=== PATIENT | female | born 1975 | race Caucasian/White ===

== ENCOUNTER 2024-10-06 18:07 | Emergency (ER) | payer BC ==
[2024-10-06 18:21] VITALS: TEMP 98.8
[2024-10-06 19:14] LABS: Absolute Neutrophil Ct (ANC) 5.63 x10^3/uL (1.56-6.13); BASOPHIL % 0.7 % (0.1-1.2); Basophil (Absolute #) 0.06 x10^3/uL (0.01-0.08); Eosinophil % 1.3 % (0.7-5.8); Eosinophil (Absolute #) 0.12 x10^3/uL (0.04-0.36); Hemoglobin 11.8 g/dL (11.2-15.7); IMMATURE GRAN # 0.03 x10^3u/L (0.001-0.031); IMMATURE GRAN % 0.3 % (0.001-0.429); Lymphocyte (Absolute #) 2.45 x10^3/uL (1.18-3.74); Lymphocytes % 26.9 % (19.3-51.7); Mean Cell Volume 90.2 fL (79.4-94.8); Mean Corpuscular Hemoglobin 28.8 pg (25.6-32.2); Mean Corpuscular Hgb Concent. 31.9 g/dL (32.2-35.5); Mean Platelet Volume 10.2 fL (9.4-12.3); Monocyte (Absolute #) 0.82 x10^3/uL (0.24-0.86); Neutrophil % 61.8 % (34.0-71.1); Platelet Count 394 x10^3/uL (182-369); Red Cell Distribution Width 15.8 % (11.7-14.4); White Blood Count 9.1 x10^3/uL (3.98-10.04)
[2024-10-06 19:33] LABS: ALBUMIN 4.7 g/dL (3.5-5.0); ANION GAP 14.8 MEQ/L (5-15); BILIRUBIN,TOTAL 0.5 mg/dL (0.2-1.3); Calcium 9.8 mg/dL (8.4-10.2); Creatinine 1 0.81 mg/dL (0.52-1.04); Direct Bilirubin 0.3 mg/dL (0.0-0.4); EST GLOMERULAR FILTRATION RATE 88.9 ML/MIN; Potassium 4.8 mmol/L (3.5-5.1); Total Protein 7.8 g/dL (6.3-8.2)
[2024-10-06 20:30] LABS: FREE TRIODOTHYRONINE 3.34 pg/mL (2.77-5.27); NT PRO BNPII 48.6 pg/mL (<300); TSH, 3RD Generation 0.354 mIU/L (0.470-4.680)
--- NOTE | 2024-10-06 20:47 | ERPHSYRPT ---
- History of Present Illness Time Seen by Provider: 10/06/24 18:22 Historian: patient Exam Limitations: no limitations Patient Subjective Stated Complaint: C/O intermittent chest pain for a few months. States pain doesn't move or radiate anywhere but is usually accompanied by left arm tingling. Denies N/V. 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 Triage Nursing Assessment: Patient ambulated back to ER. She is alert and oriented. No SOB. No cough. Skin tone normal. KELLEY WNL. No edema. Physician History: 49-year-old female with history of anxiety/depression/GERD presented in the ER from primary care office with complaint of off and on chest pain with some palpitations going on for the last 6 months. Patient reports she mentioned to her primary care and is sent in here for further evaluation. Patient reports it last for few seconds to a minute and improves on its own without any significant aggravating or relieving factors. No difficulty breathing associated with it. No history of coronary artery disease, DVT/PE. Patient reports some sensation of the left arm off and on. Denies any chest pain currently. Aspirin Treatment Today: no aspirin today Allergies/Adverse Reactions: clindamycin Allergy (Unknown, Verified 10/06/24 18:10) hydrocodone Allergy (Unknown, Verified 10/06/24 18:10) latex Allergy (Unknown, Verified 10/06/24 18:10) Penicillins Allergy (Unknown, Verified 10/06/24 18:10) Sulfa (Sulfonamide Antibiotics) Allergy (Unknown, Verified 10/06/24 18:10) aloe Adverse Reaction (Intermediate, Verified 10/06/24 18:10) Home Medications: Albuterol Sulfate [Albuterol Sulfate Hfa] 8.5 gm IH UD PRN 04/15/24 [History] Levothyroxine Sodium 50 Mcg [Synthroid 50 Mcg] 50 mcg PO DAILY 04/15/24 [History] Spironolactone 50 mg PO DAILY 04/15/24 [History] buPROPion HCL [Wellbutrin Xl] 150 mg PO DAILY 04/15/24 [History] ARIPiprazole [Aripiprazole] 2 mg PO DAILY 10/06/24 [History] Pantoprazole Sodium [Protonix] 40 mg PO BID 10/06/24 [History] Hx Tetanus, Diphtheria Vaccination/Date Given: Yes Immunizations Up to Date: Yes Travel Risk - International Travel Have you traveled outside of the country in past 3 weeks: No - Emerging Infectious Disease Are you exhibiting symptoms associated with any current EIDs: No - Review of Systems Constitutional: No Symptoms Eyes: No Symptoms Ears, Nose, & Throat: No Symptoms Respiratory: No Symptoms Cardiac: Chest Pain, Palpitations Abdominal/Gastrointestinal: No Symptoms Genitourinary Symptoms: No Symptoms Musculoskeletal: No Symptoms Neurological: No Symptoms Psychological: Anxiety, Depression Hematologic/Lymphatic: No Symptoms Immunological/Allergic: No Symptoms - Past Medical History Pertinent Past Medical History: Yes Neurological History: No Pertinent History ENT History: No Pertinent History Cardiac History: No Pertinent History Respiratory History: Asthma Endocrine Medical History: Hypothyroidism Musculoskeletal History: No Pertinent History GI Medical History: No Pertinent History History: No Pertinent History Psycho-Social History: Anxiety, Depression Female Reproductive Disorders: Pelvic Inflammatory Disease - Past Surgical History Past Surgical History: Yes Neuro Surgical History: No Pertinent History Cardiac: No Pertinent History Respiratory: No Pertinent History Gastrointestinal: No Pertinent History Genitourinary: No Pertinent History Musculoskeletal: No Pertinent History Female Surgical History: Tubal Ligation - Female History Hx Now: No - Social History Smoking Status: Never smoker Exposure to second hand smoke: No Drug Use: none - Social Determinants of Health Will the patient participate in the screening: Declined to provide - Nursing Vital Signs Nursing Vital Signs: Initial Vital Signs Temperature 98.8 F 10/06/24 18:07 Pulse Rate 94 H 10/06/24 18:07 Respiratory Rate 16 10/06/24 18:07 Blood Pressure 173/111 10/06/24 18:07 O2 Sat by Pulse Oximetry 99 10/06/24 18:07 Pain Scale Pain Intensity 2 - Physical Exam General Appearance: no apparent distress, alert, anxiety Eye Exam: PERRL/EOMI Ears, Nose, Throat Exam: normal ENT inspection Neck Exam: normal inspection, non-tender, supple, full range of motion Respiratory Exam: normal breath sounds, lungs clear Cardiovascular Exam: regular rate/rhythm, normal heart sounds Back Exam: normal inspection, normal range of motion Extremity Exam: normal inspection, normal range of motion Neurologic Exam: alert, oriented x 3, cooperative Skin Exam: normal color SpO2 Interpretation: normal SpO2: 96 O2 Delivery: Room Air - Course EKG Interpreted by Me: RATE ([id number]), Sinus Rhythm, NORMAL AXIS, NORMAL INTERVALS, NORMAL QRS Ordered Tests: Active Orders 24 hr Category Date Time Status [employer] Furn[employer] STAT Care 10/06/24 18:43 Active EKG-ER Only STAT Care 10/06/24 18:42 Active IV Insertion STAT Care 10/06/24 18:42 Active CHEST 1 VIEW (PORTABLE) Stat Exams 10/06/24 18:42 Taken CBC W DIFF Stat Lab 10/06/24 19:00 Completed CMP Stat Lab 10/06/24 19:00 Completed D-DIMER QUANTITATIVE Stat Lab 10/06/24 19:00 Completed FREE TRIODOTHYRONINE Stat Lab 10/06/24 19:00 Completed Hepatic Function Panel Stat Lab 10/06/24 19:00 Completed NT PRO BNPII Stat Lab 10/06/24 19:00 Completed TROPONIN Q4H Lab 10/06/24 19:00 Completed TROPONIN Q4H Lab 10/06/24 22:45 Ordered TROPONIN Q4H Lab 10/07/24 02:45 Ordered TSH, 3RD Generation Stat Lab 10/06/24 19:00 Completed Lab/Rad Data: Laboratory Result Diagrams 10/06/24 19:00 10/06/24 19:00 Laboratory Results 10/06/24 10/06/24 10/06/24 Range/Units 19:00 19:00 19:00 WBC (3.98-10.04) x10^3/uL RBC (3.93-5.22) x10^6/uL Hgb (11.2-15.7) g/dL Hct (34.1-44.9) % MCV (79.4-94.8) fL MCH (25.6-32.2) pg MCHC (32.2-35.5) g/dL RDW (11.7-14.4) % Plt Count (182-369) x10^3/uL MPV (9.4-12.3) fL Gran % (34.0-71.1) % Immature Gran % (Auto) (0.001-0.429) % Nucleat RBC Rel Count (0.00-0.2) % Eos # (Auto) (0.04-0.36) x10^3/uL Immature Gran # (Auto) (0.001-0.031) x10^3u/L Absolute Lymphs (auto) (1.18-3.74) x10^3/uL Absolute Monos (auto) (0.24-0.86) x10^3/uL Absolute Nucleated RBC (0.00-0.012) x10^3u/L Lymphocytes % (19.3-51.7) % Monocytes % (4.7-12.5) % Eosinophils % (0.7-5.8) % Basophils % (0.1-1.2) % Absolute Granulocytes (1.56-6.13) x10^3/uL Basophils # (0.01-0.08) x10^3/uL D-Dimer 0.33 (0.0-0.50) mg/L Sodium (135-145) mmol/L Potassium (3.5-5.1) mmol/L Chloride (98-107) mmol/L Carbon Dioxide (22-30) mmol/L Anion Gap (5-15) MEQ/L BUN (7-17) mg/dL Creatinine (0.52-1.04) mg/dL Estimated GFR ML/MIN Glucose (74-106) mg/dL Calcium (8.4-10.2) mg/dL Total Bilirubin (0.2-1.3) mg/dL Direct Bilirubin (0.0-0.4) mg/dL AST (14-36) U/L ALT (0-35) U/L Alkaline Phosphatase (38-126) U/L Troponin I (0.000-0.033) ng/mL NT-Pro-B Natriuret Pep 48.6 (<300) pg/mL Serum Total Protein (6.3-8.2) g/dL Albumin (3.5-5.0) g/dL Free T4 0.99 (0.78-2.19) ng/dL Free T3 pg/mL 3.34 (2.77-5.27) pg/mL TSH 3rd Generation 0.354 L (0.470-4.680) mIU/L 10/06/24 10/06/24 10/06/24 Range/Units 19:00 19:00 19:00 WBC 9.1 (3.98-10.04) x10^3/uL RBC 4.10 (3.93-5.22) x10^6/uL Hgb 11.8 (11.2-15.7) g/dL Hct 37.0 (34.1-44.9) % MCV 90.2 (79.4-94.8) fL MCH 28.8 (25.6-32.2) pg MCHC 31.9 L (32.2-35.5) g/dL RDW 15.8 H (11.7-14.4) % Plt Count 394 H (182-369) x10^3/uL MPV 10.2 (9.4-12.3) fL Gran % 61.8 (34.0-71.1) % Immature Gran % (Auto) 0.3 (0.001-0.429) % Nucleat RBC Rel Count 0.0 (0.00-0.2) % Eos # (Auto) 0.12 (0.04-0.36) x10^3/uL Immature Gran # (Auto) 0.03 (0.001-0.031) x10^3u/L Absolute Lymphs (auto) 2.45 (1.18-3.74) x10^3/uL Absolute Monos (auto) 0.82 (0.24-0.86) x10^3/uL Absolute Nucleated RBC 0.00 (0.00-0.012) x10^3u/L Lymphocytes % 26.9 (19.3-51.7) % Monocytes % 9.0 (4.7-12.5) % Eosinophils % 1.3 (0.7-5.8) % Basophils % 0.7 (0.1-1.2) % Absolute Granulocytes 5.63 (1.56-6.13) x10^3/uL Basophils # 0.06 (0.01-0.08) x10^3/uL D-Dimer (0.0-0.50) mg/L Sodium 139 (135-145) mmol/L Potassium 4.8 (3.5-5.1) mmol/L Chloride 98 (98-107) mmol/L Carbon Dioxide 31 H (22-30) mmol/L Anion Gap 14.8 (5-15) MEQ/L BUN 17 (7-17) mg/dL Creatinine 0.81 (0.52-1.04) mg/dL Estimated GFR 88.9 ML/MIN Glucose 96 (74-106) mg/dL Calcium 9.8 (8.4-10.2) mg/dL Total Bilirubin 0.50 (0.2-1.3) mg/dL Direct Bilirubin 0.3 (0.0-0.4) mg/dL AST 39 H (14-36) U/L ALT 32 (0-35) U/L Alkaline Phosphatase 91 (38-126) U/L Troponin I < 0.012 (0.000-0.033) ng/mL NT-Pro-B Natriuret Pep (<300) pg/mL Serum Total Protein 7.8 (6.3-8.2) g/dL Albumin 4.7 (3.5-5.0) g/dL Free T4 (0.78-2.19) ng/dL Free T3 pg/mL (2.77-5.27) pg/mL TSH 3rd Generation (0.470-4.680) mIU/L - Progress Progress: improved, re-examined Air Movement: good Progress Note: 10/06/24 20:45 49-year-old is evaluated in ER for intermittent chest pain and palpitations for quite some time. Patient is not having any chest pain currently. EKG is sinus rhythm with no acute ischemic changes. She is not tachypneic or tachycardic, workup showed normal white count, fairly unremarkable chemistries and negative troponin. Also has negative D-dimers. Chest x-ray negative for any acute cardiopulmonary findings reviewed by me, pending official report. Patient has history of hypothyroidism, taking levothyroxine, mildly low TSH which could be the reason for her palpitations. Recommended follow-up with her primary care. She is low heart score, negative troponin and with her symptoms going on for such a long time and no chest pain currently, do not think he needs second troponin or any other workup. Recommended outpatient follow-up with primary care and cardiology for further evaluation. Discussed signs symptoms of worsening needing return to ER which she seems understanding. Stable for discharge. Complexity of problem addressed. Moderate acute Complexity of data reviewed/analyzed: Acute moderate. Risk of complication inpatient management: Mild to moderate Blood Culture(s) Obtained: No Antibiotics given: No Counseled pt/family regarding: lab results, diagnosis, need for follow-up, rad results Medical Desision Making - Independent Historian Additional History obtained from: Spouse - Diagnostic Testing Diagnostic test were ordered, analyzed, and reviewed by me: Yes Radiological Interpretation: Interpreted by me, Reviewed by me - Departure Departure Disposition: Home Clinical Impression: Atypical chest pain, Intermittent palpitations Condition: Stable Critical Care Time: No Referrals: JEANNE MONROE MD [Primary Care Provider] - Follow up with PCP 1 day LUZ MARINA PERES [CONSULTING PHYSICIAN] - Follow up/PCP as directed (Call for appointment for reevaluation) Instructions: Angina (DC) Additional Instructions: Follow-up with your primary care for reevaluation and may need adjustment in dose of your levothyroxine. Follow-up with cardiology for reevaluation of chest pain and palpitations. Return to ER for any worsening.
[2024-10-06 21:09] VITALS: BP 149/100; PULSE 96; RESP 14; O2SAT 97
--- NOTE | 2024-10-06 22:28 | XRAY ---
Indication: Chest pain. Comparison: None Portable chest demonstrates normal heart, lungs, and bony thorax.
== END 2024-10-06 21:08 | disposition home or self-care (01) ==
LOC: ED 18:07
DX: R07.89 Other chest pain (principal); R00.2 Palpitations; Z79.899 Other long term (current) drug therapy
CPT/HCPCS: 36415; 71045; 80053; 80076; 83880; 84439; 84443; 84481; 84484; 85025; 85379; 93005; 93041; 99284; 99285